=== PATIENT | female | born 1975 | race Caucasian/White ===

== ENCOUNTER 2024-09-02 22:42 | Emergency (ER) | payer MEDICAID, SELFPAY ==
[2024-09-02 22:52] VITALS: BP 144/96; PULSE 95; RESP 18; TEMP 36.6; O2SAT 96; BMI 24.0
[2024-09-02] MEDS: BUPIVACAINE 0.5% 30ML VIAL 50 MG IJ (23:13)
[2024-09-02] MEDS: LIDOCAINE 2% VISCOUS SOL 15ML UDC 15 ML PO (23:14)
--- NOTE | 2024-09-02 23:19 | ED_ITS ---
Discharge Plan Disposition Patient Disposition: Home, Self-Care Condition: Good Prescriptions Prescriptions: New amoxicillin-pot clavulanate 875-125 mg tablet 1 tab PO BID Qty: 20 0RF ondansetron 4 mg tablet,disintegrating 4 mg PO Q6H PRN (Reason: nausea and vomiting) Qty: 10 0RF ibuprofen 200 mg tablet 600 mg PO QID PRN (Reason: fever or pain) Qty: 60 0RF Referrals Follow up/Referrals: Provider,Referral, MD [Primary Care Provider] - See instructions Activity Restrictions/Add. Instructions Additional Instructions/Restrictions: You were evaluated in the ER and are appropriate for discharge at this time. Take Tylenol, ibuprofen as needed for pain, do not exceed the recommended doses on the bottles. Drink plenty of water and eat a snack each time you take these medications to avoid side effects. You were provided dental balls. When your nerve block wears off, begin using these. Apply them to your painful areas 1 hour on, 1 hour off. Do not eat, drink, or sleep with these in. Take the prescribed antibiotics as directed, do not skip doses, do not stop taking them early. Follow-up with your dentist as scheduled on Tuesday, do not miss this appointment. Return to the ER with new, worsening, or otherwise concerning symptoms. Clinical Impressions Clinical Impression: Pain, dental Instructions Patient Instructions: DI for Acute Pain -- Adult Print Language Print Language: Croatian Discharge ED Provider: Celia Jones General Adult HPI General Chief complaint: PAIN Stated complaint: Toothache Time Seen by Provider: 09/02/24 23:05 Mode of Arrival: Ambulatory Source of Information: Patient Limitations: No Limitations Description of Symptoms (Recalled from ER Triage Doc. by RN): pt c/o tooth pain to left side of face with n/v from pain. History of Present Illness HPI narrative: 49-year-old female presents to the ER with dental pain on the left side of the face. She reports she has been dealing with this for close to a month and is scheduled for evaluation by dentist in 2 days but in the last 1 day, her pain has severely increased and she came to the ER for treatment believing she has an infection. Patient reports she is on Suboxone and cannot take any narcotics but would like a shot of Toradol. Patient reports she is otherwise taken Tylenol, no other medications. Patient reports pain in her left maxillary molars and left mandibular molars. She states she knows multiple teeth need to be extracted. She has no fevers, chills, difficulty swallowing, difficulty breathing, headache, dizziness, numbness, tingling, or weakness. She reports she is having nausea and dry heaves from the pain. Related Data Previous Rx's ?Medication ?Instructions ?Recorded amoxicillin 875 mg-potassium 1 tab PO BID #20 tabs 09/02/24 clavulanate 125 mg tablet ibuprofen 200 mg tablet 600 mg (3 x 200 mg) PO QID PRN 09/02/24 fever or pain #60 tabs ondansetron 4 mg disintegrating 4 mg PO Q6H PRN nausea and 09/02/24 tablet vomiting #10 tabs Allergies Allergy/AdvReac Type Severity Reaction Status Date / Time No Known Allergies Allergy Verified 09/02/24 23:21 [facility] Disclaimer: The information contained in this section may have been updated after the patient was seen, as this information can be updated by other users. Social History (Updated 09/02/24 @ 23:34 by Celia Jones MD) Smoking Status: Current every day smoker alcohol intake: never current occupational status: other Travel in the last 8 weeks: None ROS Obtained: Yes Systems reviewed as appropriate & no additional complaints except as documented ROS per HPI Physical Exam General General appearance: alert and in no apparent distress Head Head exam: atraumatic and normocephalic Eye Eye exam: Present PERRL and EOMI ENT ENT exam: Present mucous membranes moist and other (Posterior oropharynx clear; left facial tenderness without swelling or findings of injury externally, no trismus) Expanded ENT Exam Teeth numbered Image: 2 1. Fractured, Dental Tenderness and Other (13 fractured, 14 tender with gingival swelling no abscess) 2. Fractured, Dental Tenderness and Other (multiple fractured teeth and caries of , gingival swelling but no abscess) Comment: No sublingual swelling or erythema, no submandibular swelling or erythema Neck Neck exam: Present normal inspection and full ROM Chest Chest inspection: Present symmetric chest wall rise Respiratory Respiratory exam: Absent respiratory distress or stridor Cardiovascular Cardiovascular exam: Present regular rate and normal rhythm Abdominal Exam Abdominal exam: Present soft; Absent distention or tenderness Extremities Exam Extremities exam: Present full ROM Neurological Exam Neurological exam: Present alert and oriented X3; Absent motor sensory deficit Psychiatric Psychiatric exam: Present normal affect and normal mood Skin Skin exam: Present warm and dry Medical Decision Making Medical Records Screening: Per USPSTF and CDC recommendations, given the prevalence of disease in our region, it is our hospital?s policy to screen for HIV and viral Hepatitis for all patients aged 18 and over and those with ongoing risk factors. Fantasma Inquiry Pt receiving controlled substance: No Vital Signs: 09/02/24 22:52 Temperature 97.9 F Temperature Source Oral Pulse Rate [Right Brachial] 95 H Respiratory Rate 18 Blood Pressure [Right Arm] 144/96 H Blood Pressure Mean [Right Arm] 112 02 Sat by Pulse Oximetry 96 Orders (Tests/Meds): ED MEDICATIONS Generic Name Dose Route Start Last Admin Trade Name Freq PRN Reason Stop Dose Admin Benzocaine/Butamben/Tetracaine HCl 1 gm 09/02/24 23:20 09/02/24 23:29 Tetracaine/Benzocaine/Butamben 56 Gm [place] TP 10/02/24 23:19 1 gm NEEDED PRN Administration dental pain Discontinued Medications Generic Name Dose Route Start Last Admin Trade Name Freq PRN Reason Stop Dose Admin Amoxicillin/Clavulanate Potassium 1 each 09/02/24 23:19 09/02/24 23:27 Amoxicillin/Clavulanate Potassium 875/125mg Tablet PO 09/02/24 23:20 1 each ONCE ONE Administration Bupivacaine HCl 50 mg 09/02/24 23:05 09/02/24 23:13 Bupivacaine 0.5% 30ml Vial IJ 09/02/24 23:06 50 mg ONCE ONE Administration Ketorolac Tromethamine 30 mg 09/02/24 23:05 09/02/24 23:28 Ketorolac 30mg/Ml Vial IM 09/02/24 23:06 30 mg ONCE ONE Administration Lidocaine HCl 15 ml 09/02/24 23:05 09/02/24 23:14 Lidocaine 2% Viscous Kayli 15ml Udc PO 09/02/24 23:06 15 ml ONCE ONE Administration Ondansetron HCl 4 mg 09/02/24 23:23 09/02/24 23:26 Ondansetron 4mg Odt SL 09/02/24 23:24 4 mg ONCE ONE Administration Medical Decision Narrative: In summary, this 49-year-old female presents to the emergency department today with left facial pain, dental pain. On initial evaluation patient is hemodynamically stable, afebrile, she is obviously uncomfortable but in no acute distress, nontoxic-appearing. Patient has multiple maxillary and mandibular dental fractures, caries, and gingival swelling without findings of abscess, I considered the possibility of Manny angina on my differential but patient does not have sublingual or submandibular swelling or redness, no fevers, no difficulty swallowing or breathing. No clinical findings of this. Obviously also considered dental fracture, caries, infection, abscess. No findings of trauma though this was also considered. I do not believe labs or imaging are indicated at this time. I discussed options for pain management with the patient, she would like a shot of Toradol and I also recommended dental balls and bupivacaine nerve block. Patient agrees with these. Consent provided for nerve block and nerve blocks were successfully performed, see procedure note for details. On reassessment patient has had significant improvement of symptoms and is now resting comfortably. Dental balls were provided to the patient with instructions on their use. She also received a dose of Augmentin due to the gingival swelling concerning for infection without abscess. This was prescribed to the patient for outpatient management. Patient requested ibuprofen prescriptions and she cannot afford it [id number] currently, this was provided. I also provided prescription for Zofran. Patient has follow-up with her dentist in 48 hours, I instructed her to keep this appointment and not miss it for any reason. Patient was given instructions on symptomatic management, follow up instructions, and return precautions for the emergency department. Patient indicated understanding and was discharged in stable condition. Procedures Risk/Benefits of Procedure(s) Were Explained: Yes (Written and verbal consent provided by patient) Nerve Block Nerve Block 1: Time out performed: Yes Local Anesthetic: bupivacaine 0.5% Amount of anesthesia used (mL): 5 Side: Left Intraoral Nerve Block: inferior alveolar Procedure Successful: Yes Patient Tolerated Procedure: well and no complications Additional Comments: Aspirated during insertion of needle, no blood drawn back, infiltrated 5 mL (25 mg) of 0.5% bupivacaine. Successful anesthesia achieved. Patient tolerated procedure well. Nerve Block 2: Time out performed: Yes Local Anesthetic: bupivacaine 0.5% Amount of anesthesia used (mL): 5 Side: Left Intraoral Nerve Block: superior alveolar Procedure Successful: Yes Patient Tolerated Procedure: well and no complications Additional Comments: Aspirated during insertion of needle, no blood drawn back, infiltrated 5 mL (25 mg) of 0.5% bupivacaine. Successful anesthesia achieved. Patient tolerated procedure well Critical Care Critical Care Time Critical Care Time: No
[2024-09-02] MEDS: ONDANSETRON 4MG ODT 4 MG SL (23:26)
[2024-09-02] MEDS: AMOXICILLIN/CLAVULANATE POTASSIUM 875/125MG TABLET 1 EACH PO (23:27)
[2024-09-02] MEDS: KETOROLAC 30MG/ML VIAL 30 MG IM (23:28)
[2024-09-02] MEDS: TETRACAINE/BENZOCAINE/BUTAMBEN 56 GM SPRAY TP (23:29)
[2024-09-02 23:41] VITALS: BP 137/93; PULSE 86; RESP 18; TEMP 36.6
== END 2024-09-02 23:43 | disposition home or self-care (01) ==
PROVIDERS: Emergency Provider Emergency Medicine
DX: K08.89 Other specified disorders of teeth and supporting structures (principal); R11.2 Nausea with vomiting, unspecified
CPT/HCPCS: 64400; 96372; 99283; C9144; J1885; Q0162

== ENCOUNTER 2025-01-06 12:41 | Emergency (ER) | payer MEDICAID, SELFPAY ==
[2025-01-06 12:49] VITALS: BP 117/81; PULSE 80; RESP 18; TEMP 36.4; O2SAT 97; BMI 23.9
--- NOTE | 2025-01-06 13:00 | ED_ITS ---
Discharge Plan Disposition Patient Disposition: Home, Self-Care Condition: Good Prescriptions Prescriptions: New fluticasone propionate [Flonase Allergy Relief] 50 mcg/actuation spray,suspension 1 spray intranasal DAILY PRN (Reason: allergy symptoms) Qty: 16 0RF Rx Instructions: administer into each nostril cetirizine 10 mg tablet 10 mg PO DAILY PRN (Reason: allergy symptoms) Qty: 30 0RF No Action amoxicillin-pot clavulanate 875-125 mg tablet 1 tab PO BID Qty: 20 0RF ondansetron 4 mg tablet,disintegrating 4 mg PO Q6H PRN (Reason: nausea and vomiting) Qty: 10 0RF ibuprofen 200 mg tablet 600 mg PO QID PRN (Reason: fever or pain) Qty: 60 0RF Referrals Follow up/Referrals: Deysi Griffith APRN [Primary Care Provider] - See instructions Activity Restrictions/Add. Instructions Additional Instructions/Restrictions: Today your evaluated in the emergency and diagnosed with fluid behind your ears. Please stop smoking. Please use the saline rinse that we discussed. Please us e the Flonase as prescribed. Uses the ceterizine at night. Continue your Sudafed as directed. Please follow-up with your PCP within 7 days. Return to the ED for any worsening of condition. Clinical Impressions Clinical Impression: Acute effusion of left ear, Acute effusion of right ear, Nasal congestion Instructions Patient Instructions: DI for Nasal Congestion Print Language Print Language: Tongan Discharge ED Provider: Jorge Zuniga Adult HPI <Elvira Vee APRN - Last Filed: 01/06/25 13:18> General Chief complaint: Ear Stated complaint: Can hear out of left ear Time Seen by Provider: 01/06/25 12:53 Mode of Arrival: Ambulatory Source of Information: Patient Description of Symptoms (Recalled from ER Triage Doc. by RN): Pt states she has not been able to hear out of her left ear and has had pain for 4 days. Pt has tried sudafed OTC and nasal spray History of Present Illness HPI narrative: Patient is a 49-year-old female PMHx tobacco use and emphysema who presents to the ED for complaints of hearing loss in left ear, nasal congestion x 4 days. Patient states that she was seen at [facility] yesterday given Sudafed and a nasal spray advised she has used this once with no relief. Related Data Previous Rx's ?Medication ?Instructions ?Recorded amoxicillin 875 mg-potassium 1 tab PO BID #20 tabs 09/02/24 clavulanate 125 mg tablet ibuprofen 200 mg tablet 600 mg (3 x 200 mg) PO QID PRN 09/02/24 fever or pain #60 tabs ondansetron 4 mg disintegrating 4 mg PO Q6H PRN nausea and 09/02/24 tablet vomiting #10 tabs cetirizine 10 mg tablet 10 mg PO DAILY PRN allergy 01/06/25 symptoms #30 tabs fluticasone propionate 50 1 spray intranasal DAILY PRN 01/06/25 mcg/actuation nasal allergy symptoms #16 grams spray,suspension (Flonase Allergy Relief) Allergies Allergy/AdvReac Type Severity Reaction Status Date / Time No Known Allergies Allergy Verified 09/02/24 23:21 PFSH <Elvira Vee APRN - Last Filed: 01/06/25 13:18> PFS Disclaimer: The information contained in this section may have been updated after the patient was seen, as this information can be updated by other users. Social History (Updated 09/02/24 @ 23:34 by Celia Jones MD) Smoking Status: Current every day smoker alcohol intake: never current occupational status: other Travel in the last 8 weeks: None Have you lived/traveled outside [place] in past 30 days?: No Contact w/someone who lives/traveled outside [place] past 30 days?: No Exposure to someone with infectious disease in past 14 days?: No Do you have a fever (greater than 100.4 F or 38 C)?: No Have you tested positive for COVID-19: No Exposed to someone with COVID-19 in past 14 days?: No Do you have a sore throat?: No Do you have a cough?: No Do you have any weakness?: No Do you have any diarrhea?: No Are you experiencing any unusual bleeding?: No Do you have any muscle aches/pain?: No Do you have any abdominal pain?: No Are you experiencing loss of taste or smell?: No <Elvira Vee APRN - Last Filed: 01/06/25 13:18> ROS Obtained: Yes Systems reviewed as appropriate & no additional complaints except as documented Physical Exam <Elvira Vee APRN - Last Filed: 01/06/25 13:18> General General appearance: alert and in no apparent distress Head Head exam: atraumatic and normocephalic Eye Eye exam: Present normal appearance and PERRL ENT ENT exam: Present other (Right TM clear effusion, left TM clear and cloudy effusion) Neck Neck exam: Present normal inspection Chest Chest inspection: Present normal inspection and symmetric chest wall rise; Abse nt tenderness Respiratory Respiratory exam: Present normal lung sounds bilaterally Cardiovascular Cardiovascular exam: Present regular rate Abdominal Exam Abdominal exam: Present soft and normal bowel sounds; Absent tenderness Extremities Exam Extremities exam: Present normal inspection and full ROM Back Exam Back exam: Present normal inspection and full ROM Neurological Exam Neurological exam: Present alert and oriented X3 Psychiatric Psychiatric exam: Present normal affect and normal mood Skin Skin exam: Present warm and dry Medical Decision Making <Elvira Vee APRN - Last Filed: 01/06/25 13:18> Medical Records Screening: Per USPSTF and CDC recommendations, given the prevalence of disease in our region, it is our hospital?s policy to screen for HIV and viral Hepatitis for all patients aged 18 and over and those with ongoing risk factors. Fantasma Inquiry Pt receiving controlled substance: No Fantasma was queried for this patient: No Vital Signs: 01/06/25 12:49 01/06/25 13:06 Temperature 97.5 F L 97.7 F Temperature Source Temporal Artery Scan Pulse Rate 88 Pulse Rate [Right] 80 Respiratory Rate 18 18 Blood Pressure 121/77 Blood Pressure [Right Arm] 117/81 Blood Pressure Mean [Right Arm] 93 Blood Pressure Source [Right Arm] Automatic Cuff Blood Pressure Position [Right Arm] Sitting 02 Sat by Pulse Oximetry 97 Oxygen Delivery Method Room Air Medical Decision Narrative: In summary, patient is a 49-year-old female PMHx tobacco use and emphysema who presents to the ED for complaints of hearing loss in left ear, nasal congestion x 4 days. Patient states that she was seen at [facility] yesterday given Sudafed and a nasal spray advised she has used this once with no relief. Has not tried any other [id number] medications. Denies any other complaints at this time. Denies fever, chills, body aches, chest pain, shortness of breath, abdominal pain, nausea, vomiting, blurry vision. Upon initial evaluation patient is alert, oriented and cooperative. She is hemodynamically stable. Right TM clear effusion, left TM clear and cloudy effusion. Discussed with patient that she should continue the Sudafed as directed. Advised her she can use a [id number] saline rinse for nasal congestion. Advised that I will send Flonase to the pharmacy and cetirizine to use at night for allergy. I discussed with patient that she should quit smoking. Patient requesting antibiotics, explained to patient that this is not a viral or ba cterial infectious cause. Advised her to follow-up with her PCP within 1 week. Advised her to return to the ED for any worsening of condition. Patient verbalized understanding of instructions. <Jorge Zuniga MD - Last Filed: 01/06/25 16:45> Vital Signs: 01/06/25 12:49 01/06/25 13:06 Temperature 97.5 F L 97.7 F Temperature Source Temporal Artery Scan Pulse Rate 88 Pulse Rate [Right] 80 Respiratory Rate 18 18 Blood Pressure 121/77 Blood Pressure [Right Arm] 117/81 Blood Pressure Mean [Right Arm] 93 Blood Pressure Source [Right Arm] Automatic Cuff Blood Pressure Position [Right Arm] Sitting 02 Sat by Pulse Oximetry 97 Oxygen Delivery Method Room Air Medical Decision Narrative: In summary, patient is a 49-year-old female PMHx tobacco use and emphysema who presents to the ED for complaints of hearing loss in left ear, nasal congestion x 4 days. Patient states that she was seen at [facility] yesterday given Sudafed and a nasal spray advised she has used this once with no relief. Has not tried any other [id number]-[id number] medications. Denies any other complaints at this time. Denies fever, chills, body aches, chest pain, shortness of breath, abdominal pain, nausea, vomiting, blurry vision. Upon initial evaluation patient is alert, oriented and cooperative. She is hemodynamically stable. Right TM clear effusion, left TM clear and cloudy effusion. Discussed with patient that she should continue the Sudafed as directed. Advised her she can use a [id number] saline rinse for nasal congestion. Advised that I will send Flonase to the pharmacy and cetirizine to use at night for allergy. I discussed with patient that she should quit smoking. Patient requesting antibiotics, explained to patient that this is not a viral or bacterial infectious cause. Advised her to follow-up with her PCP within 1 week. Advised her to return to the ED for any worsening of condition. Patient verbalized understanding of instructions. I was consulted by the GILLIAN, and we discussed the complexity of the problems being addressed. I approve the treatment and management plan for this patient's care in the emergency department, thus performing a substantive portion of the medical decision making. Jorge Zuniga MD Critical Care <Elvira Vee, CONFECTIONERY MAKER - Last Filed: 01/06/25 13:18> Critical Care Time Critical Care Time: No
[2025-01-06 13:06] VITALS: BP 121/77; PULSE 88; RESP 18; TEMP 36.5; O2SAT 95
== END 2025-01-06 13:07 | disposition home or self-care (01) ==
PROVIDERS: Emergency Provider Student in an Organized Health Care Education/Training Program; PCP Nurse Practitioner Family
DX: H65.192 Other acute nonsuppurative otitis media, left ear (principal); H65.191 Other acute nonsuppurative otitis media, right ear; R09.81 Nasal congestion
CPT/HCPCS: 99283